=== PATIENT | female | born 1960 | race African-American/Black ===

== ENCOUNTER → 2023-05-01 | Day surgery (SDC) | payer OTHER | END | disposition home or self-care (01) | LOC: JRADUS-SUR 08:29 | PROVIDERS: ATTEND Internal Medicine | PROC: 07963ZX Drainage of Left Axillary Lymphatic, Percutaneous Approach, Diagnostic (ICD-10-PCS; principal; 2023-05-01) | DX: R59.0 Localized enlarged lymph nodes (principal) | CPT/HCPCS: 19083; 87899; A4648 ==

== ENCOUNTER → 2024-08-20 | Day surgery (SDC) | payer OTHER | END | disposition home or self-care (01) | LOC: FMAMMOTONE 08:10 | PROVIDERS: ATTEND Internal Medicine | PROC: 0HBT3ZX Excision of Right Breast, Percutaneous Approach, Diagnostic (ICD-10-PCS; principal; 2024-08-20) | DX: N60.81 Other benign mammary dysplasias of right breast (principal); N64.89 Other specified disorders of breast; R92.1 Mammographic calcification found on diagnostic imaging of breast | CPT/HCPCS: 19081; 76098-TC-FY; 87899; 88305-TC; A4648 ==